=== PATIENT | female | born 1980 | race Caucasian/White ===

== ENCOUNTER → 2018-11-01 | Outpatient (CLI) | payer BC | LOC: MC.RAD 10:22 | DX: Z12.31 Encounter for screening mammogram for malignant neoplasm of breast (principal); N63.10 Unspecified lump in the right breast, unspecified quadrant ==

== ENCOUNTER → 2018-11-04 | Outpatient (CLI) | payer BC ==
[2006-08-19 07:00] VITALS: TEMP 97.2
[~2018-11-04] MED LIST: PRENATAL1 TA1 PO; TRI-SPRINTEC 281 TAB PO; ZYRTEC 10MG10 MG PO
== END ==
LOC: MC.RAD 07:31
DX: N63.10 Unspecified lump in the right breast, unspecified quadrant (principal); N63.20 Unspecified lump in the left breast, unspecified quadrant

== ENCOUNTER → 2018-11-30 | Outpatient (CLI) | payer BC ==
[2006-08-19 07:00] VITALS: TEMP 97.2
== END ==
LOC: MC.RAD 08:17
DX: N63.20 Unspecified lump in the left breast, unspecified quadrant (principal); N63.10 Unspecified lump in the right breast, unspecified quadrant

== ENCOUNTER → 2020-04-12 | Outpatient (CLI) | payer BC ==
[2006-08-19 07:00] VITALS: TEMP 97.2
== END ==
LOC: MC.RAD 10:54
DX: Z12.31 Encounter for screening mammogram for malignant neoplasm of breast (principal); N63.10 Unspecified lump in the right breast, unspecified quadrant

== ENCOUNTER → 2020-04-19 | Outpatient (CLI) | payer BC ==
[2006-08-19 07:00] VITALS: TEMP 97.2
== END ==
LOC: MC.RAD 13:47
DX: N60.01 Solitary cyst of right breast (principal); N63.10 Unspecified lump in the right breast, unspecified quadrant

== ENCOUNTER → 2021-05-14 | Outpatient (CLI) | payer BC ==
[2006-08-19 07:00] VITALS: TEMP 97.2
== END ==
LOC: MC.RAD 13:10
DX: Z12.31 Encounter for screening mammogram for malignant neoplasm of breast (principal); N63.20 Unspecified lump in the left breast, unspecified quadrant

== ENCOUNTER → 2021-05-23 | Outpatient (CLI) | payer BC ==
[2006-08-19 07:00] VITALS: TEMP 97.2
== END ==
LOC: MC.RAD 09:52
DX: N63.20 Unspecified lump in the left breast, unspecified quadrant (principal)

== ENCOUNTER → 2022-01-19 | Outpatient (CLI) | payer BC ==
[2006-08-19 07:00] VITALS: TEMP 97.2
== END ==
LOC: MC.RAD 12:53
DX: N60.01 Solitary cyst of right breast (principal); N60.02 Solitary cyst of left breast

== ENCOUNTER → 2023-10-08 | Outpatient (CLI) | payer BC ==
[2006-08-19 07:00] VITALS: TEMP 97.2
== END ==
LOC: MC.RAD 13:50
DX: N63.10 Unspecified lump in the right breast, unspecified quadrant (principal)